=== PATIENT | female | born 2000 | race Caucasian/White ===

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

== ENCOUNTER → 2020-05-24 | Outpatient (CLI) | payer BC ==
--- NOTE | 2020-05-25 07:07 | US ---
EXAMINATION TYPE: US thyroid st tissue head/neck DATE OF EXAM: 05/24/2020 COMPARISON: Thyroid ultrasound June 02, 2017 CLINICAL HISTORY: E06.3 Autoimmune thyroiditis. Fatigue. GLAND SIZE: Right Lobe: 4.6 x 1.8 x 1.6 cm Overall Parenchyma: heterogenous Left Lobe: 5.0 x 2.1 x 1.4 cm Overall Parenchyma: heterogeneous Isthmus Thickness: 0.5 cm NODULES RIGHT: # of nodules measured on right: 0 LEFT: # of nodules measured on left: 0 ISTHMUS: # of nodules measured in the isthmus: 0 Bilateral neck scanned, no evidence of lymphadenopathy. Heterogeneous normal-sized thyroid without discrete nodule. No significant change from prior. IMPRESSION: As above.
== END | disposition home or self-care (01) ==
LOC: RADUSWWP 16:51
PROVIDERS: ATTEND Family Medicine
DX: E07.89 Other specified disorders of thyroid (principal); E06.3 Autoimmune thyroiditis
CPT/HCPCS: 76536

== ENCOUNTER → 2020-09-07 | Outpatient (CLI) | payer SELFPAY | END | disposition home or self-care (01) | LOC: LABWHC1 12:59 | PROVIDERS: ATTEND Nurse Practitioner | DX: Z03.89 Encounter for observation for other suspected diseases and conditions ruled out (principal); Z20.828 Contact with and (suspected) exposure to other viral communicable diseases | CPT/HCPCS: U0003; C9803 ==

== ENCOUNTER 2023-02-12 11:36 | Inpatient (IN) | payer BC ==
[2023-02-12] MEDS ORDERED: TRANEXAMIC 1,000 MG/100ML-NACL 1,000 MG in EMPTY BAG 1 BAG IV PRN (15:06)
[2023-02-12] MEDS ORDERED: CARBOPROST TROMETHAMINE 250 MCG/ML 1 ML AMP IM PRN (15:06)
[2023-02-12] MEDS ORDERED: miSOPROStoL 200 MCG TAB PO PRN (15:06)
[2023-02-12] MEDS ORDERED: METHYLERGONOVINE 0.2 MG/ML 1 ML AMP IM PRN (15:06)
[2023-02-12] MEDS ORDERED: TERBUTALINE 1 MG/ML VIAL SQ PRN (15:06)
[2023-02-12] MEDS ORDERED: OXYTOCIN 10 UNIT/ML 1 ML VIAL IM PRN (15:06)
[2023-02-12] MEDS ORDERED: LIDOCAINE 0.5% (PF) 5 MG/ML (50 ML SDV) SQ PRN (15:06)
[2023-02-12] MEDS ORDERED: DINOPROSTONE 10 MG INSERT.ER VAGINAL ONE (15:07)
[2023-02-12] MEDS ORDERED: OXYTOCIN 30 UNITS/500 ML NS 30 UNIT in SALINE 1 500ML.BAG IV SCH (15:15)
[2023-02-12 17:08] VITALS: RESP 16
[2023-02-12] MEDS: LACTATED RINGERS 1,000 ML IV SCH ×2 (17:52→23:00)
[2023-02-12] MEDS ORDERED: NALBUPHINE 10 MG/ML (10 ML MDV) IV PRN (18:41)
[2023-02-12 18:50] LABS: Basophils % (A) 0 %; Eosinophils % (A) 0 %; HCT 38.7 % (34.0-46.0); Lymphocytes # (A) 1.9 k/uL (1.0-4.8); Lymphocytes % (A) 19 %; MCH 30.1 pg (25.0-35.0); MCHC 33.6 g/dL (31.0-37.0); MCV 89.7 fL (80.0-100.0); Monocytes # (A) 0.6 k/uL (0-1.0); Monocytes % (A) 6 %; Neutrophils # (A) 6.9 k/uL (1.3-7.7); Neutrophils % (A) 72 %; Platelet Count 273 k/uL (150-450); RBC 4.31 m/uL (3.80-5.40); RDW 13.3 % (11.5-15.5); WBC 9.6 k/uL (3.8-10.6)
[2023-02-13] MEDS: LACTATED RINGERS 1,000 ML IV SCH ×2 (05:08→11:11)
[2023-02-13] MEDS ORDERED: SODIUM CHLORIDE 0.9% 100 ML BAG ONE (07:36)
[2023-02-13] MEDS ORDERED: fentaNYL (PF) 50 MCG/ML 5 ML AMP ONE (07:36)
[2023-02-13] MEDS ORDERED: ROPIVACAINE 5 MG/ML 20 ML AMPULE ONE (07:36)
[2023-02-13] MEDS ORDERED: ROPIVACAINE 225 MG, fentaNYL (PF). 450 MCG in SODIUM CHLORIDE 0.9% 171 ML EPIDURAL ONE (08:01)
[2023-02-13] MEDS ORDERED: diphenhydrAMINE 50 MG/ML 1 ML VIAL IVP PRN ×2 (11:24)
[2023-02-13] MEDS ORDERED: HYDROCORTISONE 2.5% RECTAL CREAM 30 GM TUBE RECTAL PRN (11:24)
[2023-02-13] MEDS ORDERED: diphenhydrAMINE 50 MG CAP PO PRN (11:24)
[2023-02-13] MEDS ORDERED: LANOLIN CREAM 5 GM TUBE TOPICAL PRN (11:24)
[2023-02-13] MEDS ORDERED: BENZOCAINE/MENTHOL SPRAY 1 GM/SPRAY AEROSOL TOPICAL PRN (11:24)
[2023-02-13] MEDS ORDERED: SIMETHICONE 80 MG CHEWABLE PO PRN (11:24)
[2023-02-13] MEDS ORDERED: diphenhydrAMINE 25 MG CAP PO PRN (11:24)
[2023-02-13] MEDS ORDERED: ZOLPIDEM 5 MG TAB PO PRN (11:24)
--- NOTE | 2023-02-13 11:27 | P.PROBDLV ---
Vaginal Delivery Note - . Vaginal Delivery Note: This is a 22-year-old 1 para 0 at 40 1/7 weeks that presented to labor and delivery last evening for Cervidil induction of labor. Patient was admitted and Cervidil was placed without difficulty. Patient progressed the evening becoming uncomfortable and by morning request epidural placement. Patient was noted to be 3-470 m and epidural was placed without difficulty by the anesthesia . Patient underwent amniotomy and clear fluid was obtained. Patient made good progress toward complete. Patient was placed in a modified lithotomy position with excellent maternal effort began pushing. Patient brought the infant down to a presentation head followed by the anterior/posterior shoulder and body were delivered. A loose nuchal cord 2 was delivered through. After two-minute delay the umbilical cord was doubly clamped and cut. A spontaneous cry was noted at . The placenta was delivered spontaneously intact with a three-vessel cord being noted. On inspection the patient's vaginal vault a second-degree midline laceration was appreciated this was instilled with lidocaine repaired in usual fashion with 3-0 Rapide. Uterus was noted be firm and below the umbilicus. A red rubber catheter was used to drain the bladder 100 mL of clear yellow urine. Estimated blood loss 250 mL. All counts were noted to be correct 2 at the end of the delivery. Patient tolerated delivery well and are resting complete.
--- NOTE | 2023-02-13 11:27 | P.HPOB ---
History of Present Illness H&P Date: 02/13/23 Chief Complaint: IUP at 40 and one sevenths weeks This is a 22-year-old 1 para 0 at 40 and one sevenths weeks that presents to labor and delivery for induction of labor. Patient was admitted overnight for Cervidil induction. Cervidil was placed without difficulty last evening. Patient was receiving routine care with myself which has been essentially uncomplicated. Patient has noted good movement denied contractions prior to admission loss of fluid or vaginal bleeding. This morning patient was uncomfortable and noted to be 3 cm. She did request epidural. Epidural was placed without difficulty by the anesthesia department. On bloodwork this patient a positive O+, rubella status immune, hepatitis B surface engine negative, HIV negative, RPR is nonreactive, group beta strep cultures are negative. Review of Systems Constitutional: Denies chills, Denies fatigue, Denies fever Ears, nose, mouth and throat: Denies headache Cardiovascular: Reports leg edema Respiratory: Denies dyspnea Gastrointestinal: Denies constipation, Denies diarrhea, Denies nausea, Denies vomiting Genitourinary: Reports Past Medical History Past Medical History: No Reported History, Thyroid Disorder History of Any Multi-Drug Resistant Organisms: None Reported Past Surgical History: No Surgical Hx Reported Past Psychological History: No Psychological Hx Reported Smoking Status: Never smoker Past Alcohol Use History: None Reported Past Drug Use History: None Reported - Past Family History Mother History Unknown: Yes Medications and Allergies Home Medications Medication Instructions Recorded Confirmed Type Aspirin [[place]] 1 tab PO ONCE 10/22/22 02/12/23 History Vit No.179/Iron/Folic 1 tab PO ONCE 10/22/22 02/12/23 History [ Tablet] Allergies Allergy/AdvReac Type Severity Reaction Status Date / Time No Known Allergies Allergy Verified 02/12/23 16:19 Exam Osteopathic Statement: *. No significant issues noted on an osteopathic structural exam other than those noted in the History and Physical/Consult. 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 heart tones are noted to be category 1, she is mayra every 2-3 minutes. Results Result Diagrams: 02/12/23 17:50 Assessment and Plan (1) Post-dates Current Visit: Yes Status: Acute Code(s): O48.0 - POST-TERM SNOMED Code(s): 66741415 Plan: This is a 22-year-old 1 para 0 at 40 1/7 weeks that presents to labor and delivery for induction of labor. Patient was admitted last night for Cervidil induction. Cervidil was placed without difficulty. Patient did contract through the night became uncomfortable requested epidural. Epidural was placed this morning. Amniotomy was performed. Continue current plan of Pitocin for augmentation of labor, anticipate spontaneous vaginal delivery this afternoon.
[2023-02-13] MEDS ORDERED: OXYTOCIN 30 UNITS/500 ML NS 30 UNIT in SALINE 1 500ML.BAG IV SCH (11:30)
[2023-02-13] MEDS: IBUPROFEN 600 MG TAB PO SCH ×2 (17:10→23:03)
[2023-02-13] MEDS: SENNOSIDES-DOCUSATE SODIUM 1 EACH TAB PO SCH (20:06)
[2023-02-13] MEDS: ACETAMINOPHEN TAB 325 MG TAB PO PRN (21:28)
[2023-02-14] MEDS: ACETAMINOPHEN TAB 325 MG TAB PO PRN ×2 (04:30→09:56)
[2023-02-14] MEDS: IBUPROFEN 600 MG TAB PO SCH (05:55)
[2023-02-14 08:00] VITALS: BP 130/72; PULSE 82; TEMP 98.2
--- NOTE | 2023-02-14 08:51 | P.DS ---
Providers Date of admission: 02/12/23 16:00 Expected date of discharge: 02/14/23 Attending physician: Sangita Hester Primary care physician: Reece Ybarra - Discharge Diagnosis(es) (1) Post-dates Current Visit: Yes Status: Acute (2) Status post normal vaginal delivery Current Visit: Yes Status: Acute (3) Obstetric vaginal laceration with second degree perineal laceration Current Visit: Yes Status: Acute Hospital Course: This is a 22 yo at 40 1/7 weeks that presented to labor and delivery on 02/12 for cervidil induction of labor. she has been receiving routine care with myself and has been uncomplicated. she desired elective induction secondary to post dates. she was admitted to labor and delivery and Cervidil was placed. Patient did well through the evening becoming uncomfortable. In the morning she was noted to be 3-4 cm she requested epidural. Epidural was placed without difficulty by the anesthesia department. Amniotomy was performed and clear fluid was obtained. Patient made good progress towards complete began pushing. Patient had a normal spontaneous vaginal delivery of a viable male at 1058, weight of 6 lbs. 13 oz., Apgars of 9 and 9 at one and 5 minutes respectively. Patient did sustain a second-degree laceration during delivery this was repaired in usual fashion with 3-0 Rapide. Patient has done well . She is ambulating and voiding without difficulty. States her pain is well-controlled. She denies concerns. She is breast-feeding without difficulty. She would like discharge home at 24 hours if possible. Patient Condition at Discharge: Good Plan - Discharge Summary New Discharge Prescriptions: No Action Vit No.179/Iron/Folic [ Tablet] 1 tab PO ONCE Aspirin [[place]] 1 tab PO ONCE Discharge Medication List Aspirin [V[place]] 1 tab PO ONCE 10/22/22 [History] Vit No.179/Iron/Folic [ Tablet] 1 tab PO ONCE 10/22/22 [History] Follow up Appointment(s)/Referral(s): Sangita Hester DO [Doctor of Osteopathic Medicine] - 4 Weeks Patient Instructions/Handouts: Vaginal Delivery (GEN), Vaginal Delivery (DC) Activity/Diet/Wound Care/Special Instructions: No tub baths or intercourse until 6 weeks . Bleeding precautions are reviewed with patient. Patient is to call the office make a routine visit for 4 weeks. Should she have any concerns prior to this appointment she is urged to call the office. Discharge Disposition: HOME SELF-CARE
[2023-02-14] MEDS: SENNOSIDES-DOCUSATE SODIUM 1 EACH TAB PO SCH (09:57)
== END 2023-02-14 12:00 | disposition home or self-care (01) | DRG 807 ==
LOC: 4FBP 16:00
PROVIDERS: ADMIT Obstetrics & Gynecology Obstetrics; ATTEND Obstetrics & Gynecology Obstetrics
PROC: 10E0XZZ Delivery of Products of Conception, External Approach (ICD-10-PCS; principal; 2023-02-13)
PROC: 0KQM0ZZ Repair Perineum Muscle, Open Approach (ICD-10-PCS; 2023-02-13)
PROC: 3E0P7VZ Introduction of Hormone into Female Reproductive, Via Natural or Artificial Opening (ICD-10-PCS; 2023-02-13)
PROC: 10907ZC Drainage of Amniotic Fluid, Therapeutic from Products of Conception, Via Natural or Artificial Opening (ICD-10-PCS; 2023-02-13)
PROC: 3E0R3BZ Introduction of Anesthetic Agent into Spinal Canal, Percutaneous Approach (ICD-10-PCS; 2023-02-13)
DX: O48.0 Post-term pregnancy (principal); Z37.0 Single live birth; O69.81X0 Labor and delivery complicated by cord around neck, without compression, not applicable or unspecified; Z3A.40 40 weeks gestation of pregnancy; O70.1 Second degree perineal laceration during delivery
CPT/HCPCS: 85025; 86850; 86900; 86901

== ENCOUNTER 2023-07-08 22:18 | Emergency (ER) | payer BC ==
[2023-07-08] MEDS ORDERED: SODIUM CHLORIDE 0.9% 500 ML 500 ML IV STA (22:37)
[2023-07-08] MEDS ORDERED: ONDANSETRON 4 MG/2 ML VIAL IVP STA (22:37)
[2023-07-08] MEDS ORDERED: SODIUM CHLORIDE 0.9% 1,000 ML IV STA ×2 (22:37)
--- NOTE | 2023-07-08 22:39 | ED ---
Nausea/Vomiting/Diarrhea HPI - General Chief complaint: Abdominal Pain Stated complaint: Nausea, Vomiting, Diarrhea, Fever Time Seen by Provider: 07/08/23 22:35 Source: patient, RN notes reviewed, old records reviewed Mode of arrival: ambulatory Limitations: no limitations - History of Present Illness Initial comments: This is a 22-year-old female to the emergency department for evaluation today. Patient Dese for evaluation persistent nausea vomiting and diarrhea. Patient has no severe abdominal pain currently but has had some episodic pain. Patient did have a low-grade fever at home with the diarrhea nausea vomiting or persistent. Patient is breast-feeding currently. No travel history no recent antibiotic use MD complaint: nausea, vomiting, diarrhea, abdominal pain -: days(s) Description of Vomiting: food contents, bilious Description of Diarrhea: water, mucous Associated Abdominal Pain: Yes Location: diffuse Radiation: none Severity: moderate Severity scale (1-10): 7 Consistency: constant Improves with: none Worsens with: none Context: possible food poisoning, sick contacts Associated Symptoms: loss of appetite, nausea/vomiting, weakness - Related Data Home Medications Medication Instructions Recorded Confirmed Aspirin [[place]] 1 tab PO ONCE 10/22/22 02/12/23 Vit No.179/Iron/Folic 1 tab PO ONCE 10/22/22 02/12/23 [ Tablet] Allergies Allergy/AdvReac Type Severity Reaction Status Date / Time No Known Allergies Allergy Verified 07/08/23 22:27 Review of Systems ROS Statement: Those systems with pertinent positive or pertinent negative responses have been documented in the HPI. ROS Other: All systems not noted in ROS Statement are negative. Past Medical History Past Medical History: No Reported History, Thyroid Disorder History of Any Multi-Drug Resistant Organisms: None Reported Past Surgical History: No Surgical Hx Reported Past Psychological History: No Psychological Hx Reported Smoking Status: Never smoker Past Alcohol Use History: None Reported Past Drug Use History: None Reported - Past Family History Mother History Unknown: Yes General Exam Limitations: no limitations General appearance: alert, in no apparent distress Head exam: Present: atraumatic, normocephalic, normal inspection Eye exam: Present: normal appearance, PERRL, EOMI. Absent: scleral icterus, conjunctival injection, periorbital swelling ENT exam: Present: normal exam, mucous membranes moist Neck exam: Present: normal inspection. Absent: tenderness, meningismus, lymphadenopathy Respiratory exam: Present: normal lung sounds bilaterally. Absent: respiratory distress, wheezes, rales, rhonchi, stridor Cardiovascular Exam: Present: regular rate, normal rhythm, normal heart sounds. Absent: systolic murmur, diastolic murmur, rubs, gallop, clicks GI/Abdominal exam: Present: soft, normal bowel sounds. Absent: distended, tenderness, guarding, rebound, rigid Extremities exam: Present: normal inspection, full ROM, normal capillary refill. Absent: tenderness, pedal edema, joint swelling, calf tenderness Back exam: Present: normal inspection Neurological exam: Present: alert, oriented X3, CN II-XII intact Psychiatric exam: Present: normal affect, normal mood Skin exam: Present: warm, dry, intact, normal color. Absent: rash Course Vital Signs 07/08/23 07/09/23 22:24 01:55 Temperature 99.2 F 97.8 F Pulse Rate 67 108 H Respiratory 20 18 Rate Blood Pressure 110/65 118/75 O2 Sat by Pulse 98 98 Oximetry - Reevaluation(s) Reevaluation #1: 07/09/23 01:28 Medical record is reviewed Reevaluation #2: 07/09/23 01:29 Patient symptoms continue to improve here in the ER no active vomiting A she does not want nausea medication Reevaluation #3: 07/09/23 01:29 Patient informed of results questions answered Reevaluation #4: 07/09/23 01:29 Was pt. sent in by a medical professional or institution (, PA, CRIMINALIST TECHNICIAN, urgent care, hospital, or usp...) When possible be specific @ -no Did you speak to anyone other than the patient for history (EMS, parent, family, police, friend...)? What history was obtained from this source @ -no Did you review nursing and triage notes (agree or disagree)? Why? @ -agree Are old charts reviewed (outside hosp., previous admission, EMS record, old EKG, old radiological studies, urgent care reports/EKG's, usp records)? Report findings @ -yes Differential Diagnosis (chest pain, altered mental status, abdominal pain women, abdominal pain men, vaginal bleeding, weakness, fever, dyspnea, syncope, headache, dizziness, GI bleed, back pain, seizure, CVA, palpatations, mental health, musculoskeletal)? @ -prior EKG interpreted by me (3pts min.). @ -no X-rays interpreted by me (1pt min.). @ -no CT interpreted by me (1pt min.). @ -no U/S interpreted by me (1pt. min.). @ -no What testing was considered but not performed or refused? (CT, X-rays, U/S, labs)? Why? @ -none What meds were considered but not given or refused? Why? @ -none Did you discuss the management of the patient with other professionals (professionals i.e. , PA, CRIMINALIST TECHNICIAN, lab, RT, psych nurse, social work job titles, contract agent, teacher, airline pilot/first officer, case planner)? Give summary @ -no Was smoking cessation discussed for >3mins.? @ -no Was critical care preformed (if so, how long)? @ -no Were there social determinants of health that impacted care today? How? (Homelessness, low income, unemployed, alcoholism, drug addiction, transportation, low edu. Level, literacy, decrease access to med. care, fpc, rehab)? @ -none Was there de-escalation of care discussed even if they declined (Discuss DNR or withdrawal of care, Hospice)? DNR status @ -no What co-morbidities impacted this encounter? (DM, HTN, Smoking, COPD, CAD, Cancer, CVA, ARF, Chemo, Hep., AIDS, mental health diagnosis, sleep apnea, morbid obesity)? @ -none Was patient admitted / discharged? Hospital course, mention meds given and route, prescriptions, significant lab abnormalities, going to OR and other pertinent info. @ - 22 female to the ER for evaluation of dehydration will breast-feeding. Patient does have gastroenteritis and severe and acute nausea vomiting and diarrhea. Patient symptoms are improved here in the ER with no active vomiting or diarrhea, patient is okay for discharge home Discharge Undiagnosed new problem with uncertain prognosis? @ -no Drug Therapy requiring intensive monitoring for toxicity (Heparin, Nitro, Insulin, Cardizem)? @ -no Were any procedures done? @ -no Diagnosis/symptom? @ -Nausea vomiting with recent Acute, or Chronic, or Acute on Chronic? @ -Acute Uncomplicated (without systemic symptoms) or Complicated (systemic symptoms)? @ -Complicated Side effects of treatment? @ -no Exacerbation, Progression, or Severe Exacerbation? @ -exacerbation Poses a threat to life or bodily function? How? (Chest pain, [place], [place], pneumonia, PE, COPD, DKA, ARF, appy, cholecystitis, CVA, Diverticulitis, Homicidal, Suicidal, threat to staff... and all critical care pts) @ -yes Medical Decision Making - Medical Decision Making 22 female to the ER for evaluation of dehydration will breast-feeding. Patient does have gastroenteritis and severe and acute nausea vomiting and diarrhea. Patient symptoms are improved here in the ER with no active vomiting or diarrhea, patient is okay for discharge home - Lab Data Result diagrams: 07/08/23 23:20 07/08/23 23:20 Lab Results 07/08/23 07/08/23 Range/Units 23:20 23:20 WBC 20.5 H (3.8-10.6) k/uL RBC 5.25 (3.80-5.40) m/uL Hgb 15.5 (11.4-16.0) gm/dL Hct 45.1 (34.0-46.0) % MCV 85.9 (80.0-100.0) fL MCH 29.6 (25.0-35.0) pg MCHC 34.4 (31.0-37.0) g/dL RDW 12.2 (11.5-15.5) % Plt Count 299 (150-450) k/uL MPV 7.5 Neutrophils % 91 % Lymphocytes % 6 % Monocytes % 2 % Eosinophils % 0 % Basophils % 0 % Neutrophils # 18.6 H (1.3-7.7) k/uL Lymphocytes # 1.1 (1.0-4.8) k/uL Monocytes # 0.5 (0-1.0) k/uL Eosinophils # 0.1 (0-0.7) k/uL Basophils # 0.0 (0-0.2) k/uL Sodium 138 (137-145) mmol/L Potassium 3.6 (3.5-5.1) mmol/L Chloride 104 (98-107) mmol/L Carbon Dioxide 18 L (22-30) mmol/L Anion Gap 16 mmol/L BUN 17 (7-17) mg/dL Creatinine 0.63 (0.52-1.04) mg/dL Est GFR (CKD-EPI)AfAm >90 (>60 ml/min/1.73 sqM) Est GFR (CKD-EPI)NonAf >90 (>60 ml/min/1.73 sqM) Glucose 113 H (74-99) mg/dL Calcium 9.8 (8.4-10.2) mg/dL Phosphorus 3.8 (2.5-4.5) mg/dL Magnesium 1.6 (1.6-2.3) mg/dL Total Bilirubin 0.4 (0.2-1.3) mg/dL AST 34 (14-36) U/L ALT 33 (4-34) U/L Alkaline Phosphatase 120 (38-126) U/L Total Protein 7.7 (6.3-8.2) g/dL Albumin 4.8 (3.5-5.0) g/dL Lipase 63 (23-300) U/L Disposition Clinical Impression: Gastroenteritis, Nausea and vomiting, Diarrhea Disposition: HOME SELF-CARE Condition: Good Instructions (If sedation given, give patient instructions): Dehydration (ED), Gastroenteritis (ED), Acute Nausea and Vomiting (ED) Is patient prescribed a controlled substance at d/c from ED?: No Referrals: Reece Ybarra MD [Primary Care Provider] - 1-2 days Time of Disposition: 01:00
[2023-07-08 23:34] LABS: Basophils % (A) 0 %; Eosinophils # (A) 0.1 k/uL (0-0.7); Eosinophils % (A) 0 %; HCT 45.1 % (34.0-46.0); HGB 15.5 gm/dL (11.4-16.0); Lymphocytes # (A) 1.1 k/uL (1.0-4.8); Lymphocytes % (A) 6 %; MCH 29.6 pg (25.0-35.0); MCHC 34.4 g/dL (31.0-37.0); MCV 85.9 fL (80.0-100.0); Mean Platelet Volume 7.5; Monocytes # (A) 0.5 k/uL (0-1.0); Monocytes % (A) 2 %; Neutrophils # (A) 18.6 k/uL (1.3-7.7); Neutrophils % (A) 91 %; Platelet Count 299 k/uL (150-450); RBC 5.25 m/uL (3.80-5.40); RDW 12.2 % (11.5-15.5); WBC 20.5 k/uL (3.8-10.6)
[2023-07-08 23:47] LABS: ALT 33 U/L (4-34); AST 34 U/L (14-36); African American GFR (CKD) >90 (>60 ml/min/1.73 sqM); Albumin 4.8 g/dL (3.5-5.0); Alkaline Phosphatase 120 U/L (38-126); Anion Gap 16 mmol/L; Blood Urea Nitrogen 17 mg/dL (7-17); Calcium 9.8 mg/dL (8.4-10.2); Carbon Dioxide 18 mmol/L (22-30); Chloride 104 mmol/L (98-107); Glucose 113 mg/dL (74-99); Lipase 63 U/L (23-300); Magnesium 1.6 mg/dL (1.6-2.3); Non-African American GFR(CKD) >90 (>60 ml/min/1.73 sqM); Phosphorus 3.8 mg/dL (2.5-4.5); Potassium 3.6 mmol/L (3.5-5.1); Sodium 138 mmol/L (137-145); Total Bilirubin 0.4 mg/dL (0.2-1.3); Total Protein 7.7 g/dL (6.3-8.2)
[2023-07-09] MEDS ORDERED: SODIUM CHLORIDE 0.9% 1,000 ML IV STA (00:59)
[2023-07-09 02:23] VITALS: BP 118/75; PULSE 108; RESP 18; TEMP 97.8
== END 2023-07-09 01:55 | disposition home or self-care (01) ==
LOC: EC 22:18
DX: K52.9 Noninfective gastroenteritis and colitis, unspecified (principal); Z79.82 Long term (current) use of aspirin
CPT/HCPCS: 36415; 80053; 83690; 83735; 84100; 85025; 96360; 96361; 99284

== ENCOUNTER 2025-04-01 22:04 | Outpatient (CLI) | payer BC ==
--- NOTE | 2025-04-22 10:06 | P.MSEPDOC ---
Presenting Problems - Arrival Data Date of Arrival on Unit: 04/01/25 Time of Arrival on Unit: 22:04 Mode of Transport: Ambulatory - Complaint OB-Reason for Admission/Chief Complaint: Decreased Movement Medical History - Information : 2 Para: 1 Term: 1 : 0 Abortions: Spontaneous or Elective: 0 Number of Living Children: 0 - Gestational Age Gestational Age by EDDIE (wks/days): 37 Weeks and 4 Days Review of Systems - Review of Systems Constitutional: No problems Breast: No problems ENT: No problems Cardiovascular: No problems Respiratory: No problems Gastrointestinal: No problems Genitourinary: No problems Musculoskeletal: No problems Neurological: No problems Skin: No problems Medical Screen Scoring - Assessment - Baby A Baseline FHR: 145 Heart Rate - NICHD Category: Category I (Normal) NST: Reactive Physician Notification - Physician Notified Physician Notified Date: 04/01/25 Physician Notified Time: 22:29 Physician: Sangita Hester New Order Received: Yes - Notification Comment Comment: Dr. Hester called. Pt of hers, 37 weeks 4 days. Presents with c/o decreased movement. REactive NST with CAT 1 tones. No cx, vitals stable. Order to d/c home Maternal Triage Index - Maternal Triage Index Presenting for scheduled procedure w/no complaint: No - Stat/Priority 1 Stat Priority 1: No - Urgent/Priority 2 Urgent Priority 2: Yes Provider Notified: Sangita Hester Provider Notified Time: 22:29 Criteria Met for Priority 2: Decreased movement Disposition - Disposition OB Disposition: Discharge to home Discharge Date: 04/01/25 Discharge Time: 22:35 I agree with the RN Medical Screening Exam: Yes Case reviewed; plan agreed upon as documented in EMR&OBIX.: Yes Diagnosis: DECREASED MOVEMENTS, THIRD TRIMESTER, FETUS 1
== END 2025-04-01 22:29 | disposition home or self-care (01) ==
LOC: FBPOP 22:04
PROVIDERS: ATTEND Obstetrics & Gynecology Obstetrics
DX: O36.8131 Decreased fetal movements, third trimester, fetus 1 (principal); Z3A.37 37 weeks gestation of pregnancy
CPT/HCPCS: 59025; 99213